=== PATIENT | female | born 1990 | race Caucasian/White ===

== ENCOUNTER 2016-10-19 09:53 | Observation (INO) | payer MEDICAID ==
[~2016-10-19] VITALS: Ht 165.1 cm; Wt 109.0 kg
--- NOTE | ~2016-10-19 | DS ---
PATIENT'S NAME: DAYAMI MULLINS [facility] AGE: 25 Y [address] ROOM: [place] [address] LOCATION: [facility] ADMIT DATE: 10/19/2016 Discharge Summary DISCHARGE DATE: 10/19/2016 FAMILY PHYSICIAN: Daphne Demarco MD ATTENDING PHYSICIAN: Nicole Renae HISTORY OF PRESENT ILLNESS AND HOSPITAL COURSE: This is a 3, para 2-0- 0-2, presents at 34 weeks' gestation. She presents with decreased movement. She also reports some spotting. She received late care, starting her care at 27 weeks' gestation. Her blood type is A-positive. heart tones are reassuring and reactive. [place] shows irregular and rare contractions. Cervix is long, thick, closed, and high with no blood on the glove. IMPRESSION/DIAGNOSES: 1. Intrauterine at 34 weeks. 2. Prior section x2. 3. Decreased movement. PLAN: Since she has reassuring testing and reassuring cervical check, we will discharge her to home. She will follow up with Dr. Dawson as scheduled in the next week. MD BYRON PARKER/allyn /[id number] d: 10/20/16 1159 t: 10/21/16 1011, DISCHARGE SUMMARY
[~2016-10-19 09:53] MED LIST: FEOSOL325 MG PO; LANSINOH7 GM TOP; PERCOCET 5-3251 EACH PO; PRENATAL 1+1)(P1 TAB PO
[2016-10-19] MEDS ORDERED: SURFAK240 MG PO (10:37)
== END 2016-10-19 13:10 | disposition disaster alternative care site (69) ==
LOC: GOBS 09:53
PROVIDERS: ADMIT Obstetrics & Gynecology
DX: O36.8130 Decreased fetal movements, third trimester, not applicable or unspecified (principal); O76 Abnormality in fetal heart rate and rhythm complicating labor and delivery; O34.212 Maternal care for vertical scar from previous cesarean delivery; Z3A.34 34 weeks gestation of pregnancy
CPT/HCPCS: G0463

== ENCOUNTER 2017-02-25 08:32 | Emergency (ER) | payer SELFPAY ==
--- NOTE | ~2017-02-25 | ER ---
PATIENT'S NAME: DAYAMI MULLINS [facility] AGE: 26 Y [address] ROOM: [place] [id number] LOCATION: [facility] ADMIT DATE: 02/25/2017 ER/Outpatient Report DISCHARGE DATE: 02/25/2017 FAMILY PHYSICIAN: Daphne Demarco MD ATTENDING PHYSICIAN: Kai Mancini CHIEF COMPLAINT: Right upper abdominal pain. HISTORY OF PRESENT ILLNESS: Ms. Mullins presents for abdominal pain. It started around 3:45 this morning. It woke her up. She had chicken strips and baked [place] fries last night for supper. She has a history of gallbladder pain. She thinks this is the same thing. She states she never gets it out because her insurance will not take care of it. She works for [employer], but her has [employer] insurance. She denies any other issues at this time. The pain is deep aching in nature. She has had some nausea and a few loose bowel movements since the onset. She also has a burning sensation associated with this. It does not radiate to the back. PAST MEDICAL HISTORY: Documented on the record and reviewed by me. SOCIAL HISTORY: Documented on the record and reviewed by me. MEDICATIONS: Documented on the record and reviewed by me. ALLERGIES: DOCUMENTED ON THE RECORD AND REVIEWED BY ME. REVIEW OF SYSTEMS: All systems reviewed and negative except as noted in the HPI. PHYSICAL EXAMINATION: VITAL SIGNS: Blood pressure 111/78, pulse 75, respiratory rate is 20, temperature 98.2, SpO2 is 96% on room air. Pain is rated 7/10. GENERAL: An age appropriate female, obese, recumbent on the exam table, in mild pain. No respiratory distress. NEUROLOGIC: Awake and alert. GCS 15. No focal deficits. No asymmetry. No gait abnormalities. HEENT: Normocephalic, atraumatic. Eyes are PERRL. Oropharynx is clear. NECK: Supple. Trachea is midline. CHEST: Heart is regular rate and rhythm with no murmurs. PATIENT'S NAME: DAYAMI MULLINS [facility] AGE: 26 Y [address] ROOM: [place] [address] LOCATION: [facility] ADMIT DATE: 02/25/2017 ER/Outpatient Report DISCHARGE DATE: 02/25/2017 FAMILY PHYSICIAN: Daphne Demarco MD ATTENDING PHYSICIAN: Kai Mancini LUNGS: Clear to auscultation bilateral. No rhonchi, wheezes, or rales. ABDOMEN: Soft with intermittent voluntary guarding. Equivocal Ingram sign. Tenderness in the right upper quadrant but otherwise benign with no masses or rebound. Not peritoneal. Benign on re-exam. BACK: Normal to inspection and palpation. EXTREMITIES: Warm and well perfused. SKIN: Clean, dry, and intact. LABORATORY DATA AND X-RAYS: Ultrasound shows cholelithiasis without obstruction and no dilation of the common bile duct. Urinalysis is unremarkable. Lactate is 1.6. CBC without appreciable abnormality. CMS with no elevation of LFTs. Amylase and lipase are within normal limits. Electrolytes and renal function appropriate. HCG is negative. IMPRESSION: Biliary colic. EMERGENCY DEPARTMENT COURSE: The patient was seen and evaluated as above. Symptoms were controlled with Zofran and Dilaudid. She was given fluids as well. Her current presentation is consistent with biliary colic. Recommend low-fat diet. Follow up with surgeon/PCP as needed. Return immediately if worse. At this time, there is no evidence of cholecystitis. Presentation is not consistent with atypical presentation of an ischemic, cardiac event, or PE. All questions were answered, and the patient was discharged in good condition. MD HUA BURKS/modl /[id number] d: 02/25/17 2146 t: 03/07/17 0721, OUTPATIENT REPORT
[~2017-02-25 08:32] MED LIST changes: +SURFAK240 MG PO
[2017-02-25 09:17] LABS: BASOPHIL % 0.3 %; EOSINOPHIL # 0.1 K/uL (0.0-0.5); EOSINOPHIL % 1.4 %; HEMATOCRIT 40.4 % (33.0-46.0); HEMOGLOBIN 13.1 g/dL (11.0-15.0); IMMATURE GRANULOCYTE # 0.1 K/uL (0.0-0.3); LYMPHOCYTE # 1.9 K/uL (0.8-4.0); LYMPHOCYTE % 26.8 %; MCH 27.9 pg (27.0-34.0); MCHC 32.4 gm/dL (32.0-36.5); MONOCYTE # 0.3 K/uL (0.0-1.0); MONOCYTE % 4.4 %; MPV 11.3 fl (9.4-12.4); NEUTROPHIL # (ANC) 4.7 K/uL (1.8-7.8); NEUTROPHIL % 66.1 %; NRBC % 0 /100WBC (0-0.00); PLATELET COUNT 236 K/uL (150-450); RDW-CV 13.6 % (11.9-14.6); WBC 7.1 K/uL (4.0-11.0)
[2017-02-25 09:25] LABS: ALBUMIN 3.7 gm/dL (3.5-5.0); ALK PHOS 67 IU/L (33-138); ALT 33 IU/L (12-78); ANION GAP 13.5 (10.0-19.0); AST 16 IU/L (10-40); BLOOD UREA NITROGEN 13 mg/dL (6-24); CALCIUM 8.9 mg/dL (8.5-10.5); CHLORIDE 106 mMol/L (96-110); CO2 24 mMol/L (22-32); CREATININE 0.6 mg/dL (0.5-1.1); POTASSIUM 4.5 mMol/L (3.7-5.1); SODIUM 139 mMol/L (135-145); TOTAL BILIRUBIN 0.4 mg/dL (0.0-1.5); TOTAL PROTEIN 7.5 g/dL (6.0-8.4)
[2017-02-25 09:58] LABS: BILIRUBIN URINE NEGATIVE (NEGATIVE); BLOOD URINE NEGATIVE /UL (NEGATIVE); COLOR URINE STRAW (YELLOW); GLUCOSE URINE NEGATIVE (NEGATIVE); KETONE URINE NEGATIVE (NEGATIVE); LEUKOCYTES URINE NEGATIVE /UL (NEGATIVE); NITRITE URINE NEGATIVE (NEGATIVE); PROTEIN URINE NEGATIVE (NEGATIVE); TURBIDITY URINE CLEAR (CLEAR); UROBILINOGEN URINE NORMAL (NORMAL)
== END 2017-02-25 09:55 | disposition disaster alternative care site (69) ==
LOC: GMED 08:32
PROVIDERS: Emergency Medicine
DX: K80.70 Calculus of gallbladder and bile duct without cholecystitis without obstruction (principal); Z88.5 Allergy status to narcotic agent; Z98.890 Other specified postprocedural states; Z87.442 Personal history of urinary calculi
CPT/HCPCS: J1170; J2405; J7030